=== PATIENT | female | born 1975 | race Caucasian/White ===

== ENCOUNTER 2017-01-07 18:43 | Emergency (ER) | payer SELFPAY ==
[~2017-01-07] VITALS: Ht 160 cm; Wt 93.9 kg
[~2017-01-07 18:43] MED LIST: ENDOCET 5-3251 EACH PO; IBUPROFEN800 MG PO
[2017-01-07 23:09] VITALS: BP 139/95
== END 2017-01-07 23:27 | disposition home or self-care (01) ==
LOC: EME 18:43
DX: S00.03XA Contusion of scalp, initial encounter (principal); S09.8XXA Other specified injuries of head, initial encounter; Y08.09XA Assault by strike by other specified type of sport equipment, initial encounter; Y07.03 Male partner, perpetrator of maltreatment and neglect; F07.81 Postconcussional syndrome
CPT/HCPCS: 70450; 99281; 99283